=== PATIENT | female | born 1950 | race Caucasian/White ===

== ENCOUNTER 2018-11-12 15:50 | Emergency (ER) | payer OTHER, BC, MEDICARE ==
[2018-11-12] MEDS: LIDOCAINE 1% (MPF) 5 ML VIAL INFIL (22:39)
== END 2018-11-13 00:11 | disposition home or self-care (01) ==
LOC: FTE 11-13 00:11
DX: N75.0 Cyst of Bartholin's gland (principal)
CPT/HCPCS: 56420; 99282-25